=== PATIENT | female | born 1975 | race Two or more races ===

== ENCOUNTER 2018-11-02 13:13 | Emergency (ER) | payer SELFPAY ==
[~2018-11-02] VITALS: Ht 160 cm; Wt 99.8 kg
[2018-11-02 14:50] VITALS: BP 138/81
== END 2018-11-02 16:17 | disposition home or self-care (01) ==
LOC: ER 13:27
DX: H60.91 Unspecified otitis externa, right ear (principal); Z88.2 Allergy status to sulfonamides; Z91.040 Latex allergy status